=== PATIENT | male | born 1940 ===

== ENCOUNTER 2019-02-07 10:15 | Inpatient (IN) | payer OTHER ==
[~2019-02-07] VITALS: Ht 182.9 cm; Wt 77.1 kg
[2019-02-07] MEDS ORDERED: PROZAC20 MG PO (13:33)
[2019-02-07] MEDS ORDERED: LUPRON DEPOT22.5 MG IM (13:34)
[2019-02-07] MEDS ORDERED: ZOCOR40 MG PO (13:34)
[2019-02-10] MEDS ORDERED: SIMVASTATIN20 MG PO (08:10)
[2019-02-28] MEDS ORDERED: ULTRACET PO (13:34)
== END 2019-02-28 14:38 | disposition home or self-care (01) | DRG 330 ==
LOC: O/R 10:15 → SURH 02-10 06:51 → O/R 02-10 06:51 → SURH 02-10 18:38
PROVIDERS: ADMIT Surgery
PROC: 0DTP0ZZ Resection of Rectum, Open Approach (ICD-10-PCS; 2019-02-10)
PROC: 07BC0ZX Excision of Pelvis Lymphatic, Open Approach, Diagnostic (ICD-10-PCS; 2019-02-10)
PROC: 0DTN0ZZ Resection of Sigmoid Colon, Open Approach (ICD-10-PCS; principal; 2019-02-10 13:30)
PROC: 02HV33Z Insertion of Infusion Device into Superior Vena Cava, Percutaneous Approach (ICD-10-PCS; 2019-02-14)
PROC: BT43ZZZ Ultrasonography of Bilateral Kidneys (ICD-10-PCS; 2019-02-18)
PROC: 0T9B70Z Drainage of Bladder with Drainage Device, Via Natural or Artificial Opening (ICD-10-PCS; 2019-02-20)
PROC: 0THD8LZ Insertion of Artificial Sphincter into Urethra, Via Natural or Artificial Opening Endoscopic (ICD-10-PCS; 2019-02-25)
PROC: BP48ZZZ Ultrasonography of Right Shoulder (ICD-10-PCS; 2019-02-25)
DX: C20 Malignant neoplasm of rectum (principal); N17.8 Other acute kidney failure; K91.31 Postprocedural partial intestinal obstruction; R59.0 Localized enlarged lymph nodes; K63.89 Other specified diseases of intestine; I10 Essential (primary) hypertension; F43.22 Adjustment disorder with anxiety; F06.31 Mood disorder due to known physiological condition with depressive features; E87.6 Hypokalemia; N99.0 Postprocedural (acute) (chronic) kidney failure; N39.46 Mixed incontinence; M75.51 Bursitis of right shoulder

== ENCOUNTER 2019-03-03 12:25 | Emergency (ER) | payer OTHER ==
[~2019-03-03] VITALS: Ht 182.9 cm; Wt 74.8 kg
[~2019-03-03 12:25] MED LIST: LUPRON DEPOT22.5 MG IM; PROZAC20 MG PO; SIMVASTATIN20 MG PO; ULTRACET PO; ZOCOR40 MG PO
[2019-03-03] MEDS ORDERED: CIPRO500 MG (13:05)
== END 2019-03-03 20:08 | disposition home or self-care (01) ==
LOC: ER 12:25
DX: N39.0 Urinary tract infection, site not specified (principal); R31.0 Gross hematuria; Z98.890 Other specified postprocedural states